=== PATIENT | male | born 1950 | race Two or more races ===

== ENCOUNTER 2023-02-13 06:52 | Emergency (ER) | payer OTHER ==
[~2023-02-13] VITALS: Ht 188 cm; Wt 133.8 kg
[2023-02-13] MEDS ORDERED: ADULT LOW DOSE81 M1 PO (07:31)
[2023-02-13] MEDS ORDERED: KLOR-CON M2020 MEQ PO (07:32)
[2023-02-13] MEDS ORDERED: CHLORTHALIDONE25 MG PO (07:32)
[2023-02-13] MEDS ORDERED: ATORVASTATIN CA10 MG PO (07:32)
[2023-02-13] MEDS ORDERED: TOPROL XL100 M1 PO (07:33)
[2023-02-13] MEDS ORDERED: COZAAR100 MG PO (07:33)
[2023-02-13] MEDS ORDERED: AMLODIPINE-OLM1 EAC3 PO (07:33)
== END 2023-02-13 09:33 | disposition home or self-care (01) ==
LOC: ER 06:52
DX: S91.112A Laceration without foreign body of left great toe without damage to nail, initial encounter (principal); X58.XXXA Exposure to other specified factors, initial encounter; Y93.89 Activity, other specified; Y92.89 Other specified places as the place of occurrence of the external cause; Y99.8 Other external cause status; I10 Essential (primary) hypertension